=== PATIENT | male | born 1955 | race Caucasian/White ===

== ENCOUNTER 2016-10-12 09:07 | Inpatient (IN) | payer SELFPAY ==
--- NOTE | ~2016-10-12 | CT57 ---
[facility] A Service of [facility] & [facility] RADIOLOGY TEXT RESULTS PATIENT: FAMILIA CROSS LOCATION: A 312- : 56 UNIT #: [id number] AGE: [address]: Vipin Stratton MD SEX: M ORDER DR: [id number] [facility] [address]. [place], [place] [address] [id number] I MR#: [id number] Acc #: [id number] NAME: FAMILIA CROSS : 1955 SEX: M STUDY DATE/TIME: 10/13/2016 12:23 UNIT: A U ROOM: 312 STUDY DESCRIPTION: CT Chest Wo Cont Attending Physician: Vipin Stratton M.D. Ordering Physician: Vipin Stratton M.D. Primary Care Physician: Primary Care Physician No MEDICAL IMAGING REPORT This report is preliminary unless electronic signature is present EXAM Chest CT, no contrast, 10/13/2016 INDICATIONS 61-year-old male with shortness of air for 3 weeks, cough, fever and chills, chest soreness, 1 pack per day smoker. COPD. History of back surgery. TECHNIQUE Noncontrast CT of the chest was performed. Correlation is made with chest x-ray 10/12/2016. This CT exam was performed with one or more of the following radiation dose reduction techniques: automatic exposure control, adjustment of mA and/or kV according to patient size, and iterative reconstruction. FINDINGS CT CHEST: There is no pleural effusion. There are ground glass opacities that are more confluent in the superior segments of the lower lobes bilaterally and in the upper lobes bilaterally. Imaging features are suspicious for bilateral pneumonia. Imaging followup to resolution after appropriate therapy is recommended. There is a tiny 3 mm calcified nodule associated with the major fissure on the left. No other distinct pulmonary nodule is identified. Included thyroid unremarkable. No pericardial effusion. No axillary adenopathy. No mediastinal adenopathy. There are reactive appearing mediastinal nodes measuring up to 9 mm short axis. Aorta demonstrates no aneurysm. Coronary artery calcifications present. Included upper abdomen demonstrates a nonobstructing 8-9 mm stone in the right kidney. Osseous structures demonstrate no suspicious bone lesion. Probable benign sclerotic lesion in the posterolateral right eighth rib STS. [facility] A Service of [facility] & [facility] RADIOLOGY TEXT RESULTS PATIENT: FAMILIA CROSS LOCATION: C3A 312-01 : 57 UNIT #: [id number] AGE: [address]: Vipin Stratton MD SEX: M ORDER DR: that may represent a small enchondroma. It is unchanged dating back to 2011 and therefore benign. IMPRESSION 1. Imaging features most characteristic of multifocal pneumonia. There are ground-glass infiltrates in the lungs bilaterally involving the superior segments and upper lobes. Followup to clearing recommended after appropriate therapy. 2. No pleural effusion. 3. Reactive-appearing mediastinal nodes. 4. 8-9 mm nonobstructing right renal stone. 5. There is a 3 mm noncalcified lung nodule on the left. Given the history of tobacco abuse in this patient suggest interval followup CT in 12 months. Dictated by... Ramy Evangelista M.D. THIS IS AN ELECTRONICALLY VERIFIED REPORT Ramy Evangelista M.D. at 10/14/2016 7:20 AM DEION/ihsan TD: 10/13/2016 20:59 JOB #: [id number] MEDICAL IMAGING REPORT COPY
--- NOTE | ~2016-10-12 | DS ---
Unit #: [id number] #: [id number] Patient: FAMILIA CROSS [id number] [address] [address] [id number] I MR#: [id number] NAME: FAMILIA CROSS ROOM: 312 Age: 61 Sex: M Admission Date: 10/12/2016 : 1955 Discharge Date: 10/13/2016 Attending Physician: Vipin Stratton M.D. Primary Care Physician: No Primary Care Physician DISCHARGE SUMMARY DISCHARGE DIAGNOSES 1. Multifocal pneumonia, patient was treated with Rocephin and azithromycin. 2. Acute chronic obstructive pulmonary disease exacerbation, was treated with IV steroids. 3. Sepsis, present on admission, has resolved at this time. 4. Acute hypoxic respiratory failure, secondary to pneumonia and chronic obstructive pulmonary disease exacerbation. The patient is on room air at this time, saturating 97%. 5. Chronic pain. 6. Heavy alcohol usage. 7. Heavy tobacco usage, stressed cessation. 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 PROCEDURE None. DIAGNOSTIC STUDIES LABORATORY: Labs on the day of discharge: The patient's labs include BMP: Glucose of 190, BUN 20, creatinine 0.8, sodium 139, potassium 4, chloride 106, CO2 of 23, calcium 8.4. Total protein is 6.6, albumin 3.1, total bilirubin 0.7, AST is 29, ALT is 31, alkaline phosphatase is 58. BNP is 125. CBC: WBC 13,200, RBC 3.92, hemoglobin 12.5, hematocrit 37.9, MCV is 96.8, MCH is 31.9, MCHC is 33, RDW is 14.1, platelets 284,000, MPV is 8.5. IMAGING: Chest x-ray, two view: Suspected slight interval worsening and bilateral patchy infiltrates suspicious for multifocal pneumonia. CT chest without contrast: Again, consistent with multifocal pneumonia. Please see the full dictated report for further details. HOSPITAL COURSE The patient is a pleasant 61-year-old male with past medical history of tobacco usage, chronic back pain, and chronic pain syndrome who presented to the emergency department for symptoms of persistent dyspnea and coughing. The patient states that he has had two to three week history of increasing shortness of breath and productive cough. The patient had fever and chills. The patient states that his chest is "sore with coughing." He states appetite has been good. Denies nausea, vomiting, diarrhea, or any urinary symptoms. The patient was seen in the afterhours clinic on October 10, where he was diagnosed with pneumonia and Unit #: [id number] #: [id number] Patient: FAMILIA CROSS started on Levaquin and Medrol Dosepak which he states that he has been taking as prescribed, although when his family comes up, they tell me that he only took one dose of the Levaquin. The patient states that his symptoms had not improved. Therefore, he presented to the emergency department for further assessment. In the emergency department, his initial oxygen was 99% on room air but it had desaturated to 88% with ambulation. Chest x-ray had revealed multifocal pneumonia. He was given Rocephin and azithromycin in the emergency department and was admitted for further evaluation. He was treated for the bilateral multifocal pneumonia with Rocephin and IV Zithromax and the COPD exacerbation with IV steroids as well as mucolytics and bronchodilators. The patient, when assessed in the morning, tells me that he feels better except for a "a salty taste in his mouth", possibly due to the nebulized inhaled treatments. Other than that, he still has a persistent cough but patient denies chest pain and denies dyspnea. The patient tells me that he has been up and ambulating. I had further evaluated his multifocal pneumonia with CT scan of his chest without contrast as the patient is no longer desaturating. A CT scan of his chest without contrast was consistent with multifocal pneumonia and given patient's significant smoking history, also recommends a followup CT. I have instructed the patient that this can be arranged by his primary care physician and had recommended time being in three months. Recommend that patient can see his family doctor in about one to two weeks after the treatment of his antibiotics and can get a repeat two-view chest x-ray following that. Believe that patient's symptoms truly are from his acute COPD exacerbation and this has much improved with IV steroids. Therefore, I will be discharging patient on a low dose of prednisone. DISCHARGE CONDITION Stable. DISCHARGE FOLLOWUP Followup with primary care physician within one to two weeks for this hospitalization with a repeat two-view chest x-ray. DIET Heart healthy with consistent carb in association with [employer] diet. ACTIVITY Resume activities as was prior to hospitalization with ambulating every day. DISCHARGE MEDICATIONS 1. I am changing the prednisone and Medrol Dosepak to prednisone slow taper of 40 mg orally for three days, 30 mg orally for three days, 20 mg orally for three days, 10 mg orally for three days. 2. Symbicort two puffs inhaled twice daily. 3. Azithromycin 250 mg orally daily for the next five days as this seems to be helping the patient's symptoms. 4. Continue with gabapentin 800 mg orally three times daily as was prior to hospitalization. 5. Recommend Mucinex one tablet orally twice daily. You can get this over the counter. 6. Recommending for his persistent alcohol usage, that he can get oxul-roz-dxsgxdv multivitamin one tablet orally daily as well as folic acid 1 mg orally daily and thiamine 100 mg orally daily. 7. He can continue with home usage of Lortab 7.5/325 mg one tablet orally three times daily. Unit #: [id number] #: [id number] Patient: FAMILIA CROSS 8. Glimepiride 4 mg orally daily. Dictated by... Roxanna Greenberg PA-C for Osmin Romano/brea TD: 10/15/2016 09:14 JOB #: [id number] DISCHARGE SUMMARY X X DISCHARGE SUMMARY
--- NOTE | ~2016-10-12 | HP ---
Unit #: [id number] #: [id number] Patient: FAMILIA CROSS [id number] [facility] [address] [place], [place] [address] [id number] MR#: [id number] NAME: FAMILIA CROSS ROOM: Age: 61 Sex: M Admission Date: 10/12/2016 : 1955 Attending Physician: Antonella Phillip A.P.R.N. HISTORY AND PHYSICAL CHIEF COMPLAINT Diagnosis of pneumonia Thursday at After Hours. HISTORY OF PRESENT ILLNESS The patient is a 61-year-old male with a past medical history of chronic pain and likely COPD, who presented to the emergency department for evaluation of the above. The patient states that he has had a two to three-week history of increasing shortness of breath and productive cough. He has had fever and chills. He states that his chest has been "sore" with coughing. He states that his appetite has been good. He denies any vomiting or diarrhea and no urinary symptoms. The patient was seen at [facility] clinic on October 10, 2016. He was diagnosed with pneumonia and started on Levaquin and steroids which he has been taking as prescribed. He states that his symptoms are no better, so he presented to the emergency department for further evaluation. In the emergency department, initial pulse and blood pressure were 100 and 144/71. Oxygen saturation is listed at 99% on room air. His oxygen saturation with ambulation dropped to 88%. Chest x-ray shows multifocal pneumonia. He was given Rocephin and azithromycin in the emergency department. He is being admitted to [facility] for evaluation and further treatment. PAST MEDICAL HISTORY 1. Admission to in October 2015 for back surgery (no records). 2. Admission to [facility] November 25, 2011, for abdominal pain. 3. Chronic back pain followed by [facility]. He also sees Dr. Parks. PAST SURGICAL HISTORY 1. Multiple back surgeries. 2. Right thumb surgery. 3. Right foot surgery. SOCIAL HISTORY The patient lives with his . He has a history of heavy alcohol use but states that he stopped drinking heavy nine years ago. He smokes a pack of cigarettes daily. He is on disability. His code status is a Full Code. Unit #: [id number] #: [id number] Patient: FAMILIA CROSS FAMILY HISTORY Notable for his mother having COPD. ALLERGIES No known allergies. HOME MEDICATIONS 1. Neurontin 800 mg t.i.d. 2. Lortab 7.5/325 t.i.d. REVIEW OF SYSTEMS A complete review of systems is negative except as indicated in the History of Present Illness. The patient states that he did not get a flu shot this year. PHYSICAL EXAMINATION VITAL SIGNS: Temperature is 98.1, pulse 100, respirations 18, blood pressure 144/71, and oxygen saturation is 99% on room air but dropped to 88% during the course of his evaluation. GENERAL: Patient is a very pleasant male who is awake and alert. HEENT: Head is atraumatic. Mucous membranes are moist. NECK: Supple. Trachea is midline. CARDIOVASCULAR: Regular rate and rhythm. LUNGS: Scattered rhonchi, as well as expiratory wheezes. Breathing is not labored with conversation. ABDOMEN: Soft and nontender with bowel sounds present in all four quadrants. EXTREMITIES: Nontender with no pedal edema. NEUROLOGIC: Patient is awake and alert. He follows commands. PSYCHIATRIC: Mood and affect are normal. Patient is cooperative. SKIN: Skin of examined areas is warm and dry. DIAGNOSTIC STUDIES LABORATORY: Lactic acid is 1.2. BNP is 125. CBC notable for white blood cell count of 15.9 and hemoglobin and hematocrit 11.9 and 35.5, respectively. Comprehensive metabolic panel notable for glucose of 163 and albumin 3.3. IMAGING: Chest x-ray shows multifocal patchy airspace disease concerning for pneumonia. ASSESSMENT The patient is a 61-year-old male with: 1. Pneumonia that has failed outpatient treatment with Levaquin. 2. Sepsis. 3. Acute respiratory failure, hypoxic. 4. Likely chronic obstructive pulmonary disease exacerbation with continued tobacco abuse. 5. Chronic pain maintained on narcotics. 6. History of alcohol use, heavy, with last heavy use of alcohol being nine years ago. PLAN 1. Admit to intermediate level. 2. Normal saline at 125 mL/hour. 3. Supplemental oxygen 2-4 liters to maintain saturations greater than 92%. 4. Blood cultures x2. Unit #: [id number] #: [id number] Patient: FAMILIA CROSS 5. Sputum culture and sensitivity. 6. Procalcitonin level. 7. Rocephin IV and azithromycin IV pending further workup. 8. Rapid flu screen. 9. Sepsis protocol. 10. Solu-Medrol at 80 mg IV q.12 hours. 11. Mucinex 600 mg p.o. b.i.d. 12. Tessalon Perles p.r.n. 13. Check EKG and cardiac enzymes. 14. P.r.n. Tylenol. 15. Protonix for GI prophylaxis since the patient will be on Solu-Medrol. 16. SCDs for DVT prophylaxis. 17. Repeat labs in the morning. 18. Additional workup and consultants based on above. 19. Regarding code status, the patient is a Full Code. 1. Dictated by Osmin Arzola/kristin TD: 10/12/2016 14:23 JOB #: [id number] HISTORY AND PHYSICAL X Lydia Marquez MD X HISTORY AND PHYSICAL
--- NOTE | ~2016-10-12 | CR63 ---
[facility] A Service of [facility] & [facility] RADIOLOGY TEXT RESULTS PATIENT: FAMILIA CROSS LOCATION: [facility] : 56 UNIT #: [id number] AGE: [address]: Vipin Stratton MD SEX: M ORDER DR: [id number] [place] [id number] [facility]. [place], [place] [address] [id number] I MR#: [id number] Acc #: [id number] NAME: FAMILIA CROSS : 1955 SEX: M STUDY DATE/TIME: 10/12/2016 9:27 UNIT: [facility] PCU ROOM: [facility] STUDY DESCRIPTION: CR Chest 2 View Attending Physician: Lydia Marquez M.D. Ordering Physician: Oscar Fang M.D. Primary Care Physician: Primary Care Physician No MEDICAL IMAGING REPORT This report is preliminary unless electronic signature is present EXAM Chest 2 views, 10/12/2016 INDICATIONS Shortness of breath, cough and shortness of breath for 3 days. FINDINGS Comparison made to a prior exam from October 10, 2016. Heart size is within normal limits. Patient is noted have diffuse interstitial prominence. This was also identified on the prior examination, there is also suggestion of more patchy infiltrates particularly the right upper lobe. Findings are felt to represent multifocal pneumonia. I think they have worsened slightly when compared to the prior examination. No aggressive osseous abnormalities are identified. There is no pneumothorax or pleural effusion. IMPRESSION Suspected slight interval worsening in patchy bilateral infiltrates suspicious for multifocal pneumonia. Followup until complete resolution is recommended. Dictated by... Jennifer Grover M.D. THIS IS AN ELECTRONICALLY VERIFIED REPORT Jennifer Grover M.D. at 10/14/2016 9:18 AM AFF/ihsan TD: 10/12/2016 21:24 JOB #: [id number] [facility] A Service [facility] RADIOLOGY TEXT RESULTS PATIENT: FAMILIA CROSS LOCATION: [facility] 312 : 56 UNIT #: [id number] AGE: [address]: Vipin Stratton MD SEX: M ORDER DR: MEDICAL IMAGING REPORT COPY
--- NOTE | ~2016-10-12 | EKG ---
PATIENT: FAMILIA CROSS UNIT #: [id number] Ventricular Rate: 75 BPM Atrial Rate: 75 BPM P-R Interval: 136 ms QRS Duration: 140 ms Q-T Interval: 398 ms QTC Calculation(Bezet): 444 ms P [place]: 4 degrees Calculated R [place]: -22 degrees Calculated T [place]: 13 degrees Diagnosis Line: Normal sinus rhythm Diagnosis Line: Right bundle branch block Diagnosis Line: Abnormal ECG Diagnosis Line: No previous ECGs available Diagnosis Line: Confirmed by RHA NICOLE MD ([id number]) on Diagnosis Line: 10/14/2016 4:03:53 PM INTERPRETING MD: BONNIE HERRING
[~2016-10-12 09:07] MED LIST: FLEXERIL10 MG PO; FLOMAX0.4 M1 PO; LORTAB 5/500 TA1 TA1 PO; PHENERGAN12.5 MG PO; TYLENOL #3 PO; TYLOX1 CAP 5/50 PO
[2016-10-12] MEDS ORDERED: NEURONTIN800 MG PO (12:19)
[2016-10-12] MEDS ORDERED: LORTAB 7.5-3251 EACH PO (12:19)
[2016-10-12 12:40] LABS: BASOPHIL% 0.3 % (0-2.5); EOSINOPHIL% 0.1 % (0.0-7.0); HEMATOCRIT 35.5 % (38.0-50.0); HEMOGLOBIN 11.9 gm/dL (13.0-16.0); LYMPHOCYTE# 1.4 X10e3 (1.0-3.5); LYMPHOCYTE% 9.1 % (17.0-45.0); MEAN CELL VOLUME 96.9 FL (83-96); MEAN CORPUSCULAR HEMOGLOBIN 32.5 PG (28-34); MEAN CORPUSCULAR HGB CONC 33.5 g/dL (30-36); MEAN PLATELET VOLUME 8.3 FL (6.5-11.5); MONOCYTE# 0.7 X10e3 (0-1.0); MONOCYTE% 4.7 % (3.0-12.0); NEUTROPHIL% 85.8 % (40-75); PLATELET COUNT 242 X10e3 (140-420); RED BLOOD COUNT 3.66 X10e (3.90-5.60); WHITE BLOOD COUNT 15.2 X10e3 (4.0-10.5)
[2016-10-12 12:41] LABS: DIFF IND YES
[2016-10-12 13:08] LABS: PLATELET ESTIMATE NORMAL (NORMAL); RBC NORMAL YES
[2016-10-12 13:10] LABS: ALBUMIN SERUM 3.3 g/dL (3.5-5.0); ALKALINE PHOSPHATASE 59 U/L (32-92); ALT (SGPT) 28 U/L (10-40); AST (SGOT) 33 U/L (10-42); BILIRUBIN,TOTAL 0.5 mg/dL (0.2-2.0); BLOOD UREA NITROGEN 17 mg/dL (9-23); BUN/CREATININE RATIO 18.88; CALCIUM SERUM 8.4 mg/dL (8.4-10.2); CARBON DIOXIDE 23 mmol/L (22-31); CHLORIDE 104 mmol/L (100-111); CREATININE SERUM 0.9 mg/dL (0.6-1.4); GLOM FILT RATE Estimated ABOVE60 mL/min (>60); GLUCOSE FASTING 163 mg/dL (70-110); PROTEIN TOTAL SERUM 6.8 g/dL (6.0-8.3); SODIUM 136 mmol/L (135-145)
[2016-10-12 16:07] LABS: %MB 2.7 % (0.0-4.0); MB 7.2 ng/ml
[2016-10-12 16:32] LABS: INFLUENZA A NEG (NEG); INFLUENZA B NEG (NEG)
[2016-10-12 22:19] LABS: %MB 1.4 % (0.0-4.0); MB 3.9 ng/ml
[2016-10-13] MEDS ORDERED: GLIMEPIRIDE2 MG PO (02:17)
[2016-10-13 07:45] LABS: HEMATOCRIT 37.9 % (38.0-50.0); HEMOGLOBIN 12.5 gm/dL (13.0-16.0); MEAN CELL VOLUME 96.8 FL (83-96); MEAN CORPUSCULAR HEMOGLOBIN 31.9 PG (28-34); MEAN PLATELET VOLUME 8.5 FL (6.5-11.5); RED BLOOD COUNT 3.92 X10e (3.90-5.60); RED CELL DISTRIBUTION WIDTH 14.1 % (11.0-15.5); WHITE BLOOD COUNT 13.2 X10e3 (4.0-10.5)
[2016-10-13 08:03] LABS: ALBUMIN SERUM 3.1 g/dL (3.5-5.0); ALKALINE PHOSPHATASE 58 U/L (32-92); ALT (SGPT) 31 U/L (10-40); AST (SGOT) 29 U/L (10-42); BILIRUBIN,TOTAL 0.7 mg/dL (0.2-2.0); BLOOD UREA NITROGEN 20 mg/dL (9-23); CALCIUM SERUM 8.4 mg/dL (8.4-10.2); CARBON DIOXIDE 23 mmol/L (22-31); CHLORIDE 106 mmol/L (100-111); CREATININE SERUM 0.8 mg/dL (0.6-1.4); GLOM FILT RATE Estimated ABOVE60 mL/min (>60); GLUCOSE FASTING 190 mg/dL (70-110); PROTEIN TOTAL SERUM 6.6 g/dL (6.0-8.3); SODIUM 139 mmol/L (135-145)
[2016-10-13] MEDS ORDERED: HUMIBID-LA600 MG PO (17:15)
[2016-10-13] MEDS ORDERED: MULTI VITAMIN1 EACH PO (17:16)
[2016-10-13] MEDS ORDERED: PROTONIX PO (17:17)
[2016-10-13] MEDS ORDERED: FOLIC ACID1 MG PO (17:18)
[2016-10-13] MEDS ORDERED: THIAMINE HCL100 M2 PO (17:18)
[2016-10-13] MEDS ORDERED: SYMBICORT80 INH (17:20)
[2016-10-13] MEDS ORDERED: PREDNISONE1 MG PO (17:20)
[2016-10-13] MEDS ORDERED: AZITHROMYCIN250 MG PO (17:21)
== END 2016-10-13 18:33 | disposition home or self-care (01) | DRG 871 ==
LOC: CED 09:07 → CEDOF 13:45 → C3A PCU 19:39
PROVIDERS: Family Medicine; Nurse Practitioner
DX: A41.9 Sepsis, unspecified organism (principal); J18.9 Pneumonia, unspecified organism; J96.01 Acute respiratory failure with hypoxia; J44.1 Chronic obstructive pulmonary disease with (acute) exacerbation; G89.29 Other chronic pain; F10.21 Alcohol dependence, in remission
CPT/HCPCS: 71020; 71250; 80053; 82308; 82550; 82553; 82947; 83605; 83880; 84484; 85025; 85027; 87040; 87070; 87205; 87804; 93005; 94640; 94760; 99285; J0456; J0696; J2920; J2930